=== PATIENT | male | born 1995 | race Caucasian/White ===

== ENCOUNTER 2020-11-27 16:55 | Emergency (ER) | payer BC ==
[2020-11-27 17:12] VITALS: PULSE 82; TEMP 98
--- NOTE | 2020-11-27 17:53 | XR ---
PROCEDURE: XR ankle complete LT - 3V DATE AND TIME: 11/27/2020 5:37 PM CLINICAL INDICATION: PHH; pain for 1.5 weeks; unable to dorsiflex foot TECHNIQUE: Department protocol COMPARISON: None FINDINGS: The bones and joints and soft tissues are unremarkable. No focal findings. No malalignment. IMPRESSION: Negative examination.
--- NOTE | 2020-11-27 17:57 | XR ---
PROCEDURE: XR foot complete LT - 3V DATE AND TIME: 11/27/2020 5:37 PM CLINICAL INDICATION: PHH; pain for 1.5 weeks. Patient unable to dorsiflex foot. TECHNIQUE: Department protocol COMPARISON: None FINDINGS: The bones and joints and soft tissues are unremarkable. No focal findings. No malalignment. IMPRESSION: Negative examination.
[2020-11-27] MEDS ORDERED: ACET/COD 300 MG/30 MG STARTER PACK 6 TAB BTL PO STA (18:33)
--- NOTE | 2020-11-27 18:36 | ED ---
Lower Extremity Injury HPI - General Chief Complaint: Extremity Injury, Lower Stated Complaint: left foot pain Time Seen by Provider: 11/27/20 18:26 Source: patient Mode of arrival: ambulatory Limitations: no limitations - History of Present Illness Initial Comments: 25yo male presenting for left ankle pain, injury x2. pt states 1.5 weeks ago he went go get up from his adriana chair and he twisted the left ankle. he states that it was tender but seemed to be getting gradually better. 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 pt admit to hearing a pop, he states it is tender to weight bear. denies forefoot pain. pt states pain i localized to the left lateral ankle. he admits to new swelling with injury yesterday. denies calf pain or swelling, denies chest pain or dyspnea. pt appears nontoxic on arrival. - Related Data Allergies Allergy/AdvReac Type Severity Reaction Status Date / Time No Known Allergies Allergy Verified 11/27/20 17:09 Review of Systems ROS Statement: Those systems with pertinent positive or pertinent negative responses have been documented in the HPI. ROS Other: All systems not noted in ROS Statement are negative. Past Medical History Past Medical History: No Reported History History of Any Multi-Drug Resistant Organisms: None Reported Additional Past Surgical History / Comment(s): eye Past Psychological History: No Psychological Hx Reported Smoking Status: Never smoker Past Alcohol Use History: Rare Past Drug Use History: None Reported General Exam - General Exam Comments Initial Comments: General: The patient is awake and alert, in no distress Eye: +3 mm pupils are equal, round and reactive to light, extra-ocular movements are intact. No nystagmus. There is normal conjunctiva bilaterally. No signs of icterus. Musculoskeletal: Lateral malleolus pain to palpation and swelling, no redness. no forefoot pain, no bruising no plantar bruising. Normal ROM, of the ankle with tenderness. achilles tendon palpable and nontender, appears intact. Strength 5/5. Sensation intact. Radial and DP pulses equal bilaterally 2+. Compartments of leg soft and compressible Neurological: A&O x 3. CN II-XII intact grossly, There are no obvious motor or sensory deficits. Coordination appears grossly intact. Speech is normal. Skin: Skin is warm and dry and no rashes or lesions are noted. Psychiatric: Cooperative, appropriate mood & affect, normal judgment. Limitations: no limitations Course Vital Signs 11/27/20 17:09 Temperature 98 F Pulse Rate 82 O2 Sat by Pulse 98 Oximetry Medical Decision Making - Medical Decision Making XR (-). Hx of injury yesterday and 1.5 weeks ago. swelling in area of ATFL. pt will be splinted and is to f/u with orthopedic surgery. no ossesous process identified. Neurovascularly intact both prior to and after rachel stirrup was placed. Disposition Clinical Impression: Left ankle sprain, Left ankle swelling Disposition: HOME SELF-CARE Condition: Good Instructions (If sedation given, give patient instructions): Ankle Sprain (ED) Additional Instructions: Please use medication as discussed. Please follow-up with orthopedic surgery within the next week. Use crutches for 2-3 days as needed for comfort otherwise keep splint in place, rest, ice, elevation. Please return to emergency room if the symptoms increase or worsen or for any other concerns. Is patient prescribed a controlled substance at d/c from ED?: No Referrals: None,Stated [Primary Care Provider] - 1-2 days Lalo Su MD [STAFF PHYSICIAN] - 1-2 days Time of Disposition: 18:36
== END 2020-11-27 18:56 | disposition home or self-care (01) ==
LOC: EC 16:55
DX: S93.402A Sprain of unspecified ligament of left ankle, initial encounter (principal); X50.1XXA Overexertion from prolonged static or awkward postures, initial encounter; Y93.89 Activity, other specified
CPT/HCPCS: 73610; 73630; 99283; L4350

== ENCOUNTER → 2021-01-02 | Outpatient (CLI) | payer BC ==
--- NOTE | 2021-01-02 11:47 | XR ---
EXAMINATION TYPE: XR Hip Bilateral and AP pelvis DATE OF EXAM: 01/02/2021 CLINICAL HISTORY: pain TECHNIQUE: Single view the pelvis is submitted. 2 views are obtained of the bilateral hips. FINDINGS: No evidence for fracture, dislocation or bony lesion. Joint spaces are well-preserved. S I joints appear symmetric. IMPRESSION: 1. No acute fracture or dislocation seen. ICD 10 NO FRACTURE, INITIAL EVALUATION
== END | disposition home or self-care (01) ==
LOC: LABWHC1 11:15
PROVIDERS: ATTEND Nurse Practitioner
DX: M25.551 Pain in right hip (principal); M25.552 Pain in left hip
CPT/HCPCS: 73521